=== PATIENT | female | born 1960 | race Caucasian/White ===

== ENCOUNTER → 2017-09-28 | Outpatient (CLI) | payer OTHER, BC | END | disposition home or self-care (01) | LOC: C.RDSM 14:37 | PROVIDERS: ATTEND Physical Medicine & Rehabilitation Sports Medicine | DX: M25.511 Pain in right shoulder (principal) ==

== ENCOUNTER → 2017-12-28 | Outpatient (CLI) | payer OTHER, BC ==
[~2017-12-28] MED LIST: CATAPLEX PO; CHOL1TAB42 PO; DICL-201 PO; DICL1GEL TOP; DSF PO; FENO145T26 PO; LEVO50TA6 PO; LIRA18IN SQ; LISI-461 PO; LORA10CA10 PO; MELA1CAP9 PO; METF500T5 PO; MISC1TAB PO; MULT-506 PO; MULT-704 PO; NLV/20 PO; NORT75CA4 PO; PAROTID PMG PO; PRLSR20 PO; TURMPOW2 PO; ZOLP10TA PO
== END | disposition home or self-care (01) ==
LOC: C.RDSM 13:28
PROVIDERS: ATTEND Physical Medicine & Rehabilitation Sports Medicine
DX: Z98.890 Other specified postprocedural states (principal)